=== PATIENT | male | born 1995 | race Caucasian/White ===

== ENCOUNTER 2016-08-31 13:58 | Emergency (ER) | payer OTHER ==
[~2016-08-31] VITALS: Ht 180.3 cm; Wt 79.4 kg
--- NOTE | 2016-08-31 14:24 | ED Headache ---
General Chief Complaint: Head/Cervical Problems Stated Complaint: HEAD INJ, HEADACHE Source: patient Exam Limitations: no limitations History of Present Illness Time seen by provider: 14:23 Initial Comments To ER with reports of a headache. He's had nausea. This began on 08/27/16 after he was going to grab a ball underneath a swing set and the top of his head struck the swing set post. There was no loss of consciousness. No neck pain. Timing/Duration: 1 week Severity/Quality: moderate Location: frontal, parietal Prior Headaches/Recent Trauma: occasional headaches Associated Symptoms: denies symptoms Allergies and Home Medications Allergies Coded Allergies: No Known Drug Allergies (Unverified , 08/31/16) Home Medications Ondansetron 8 Mg Tab.rapdis #10 8 MG PO Q6H PRN PRN NAUSEA/VOMITING Prescribed by: CESAR HAN on 08/31/16 8195 Constitutional: see HPI Eyes: No Symptoms Reported Ears, Nose, Mouth, Throat: no symptoms reported Respiratory: no symptoms reported Cardiovascular: no symptoms reported Genitourinary: no symptoms reported Musculoskeletal: no symptoms reported Skin: no symptoms reported Psychiatric/Neurological: See HPI Headache Past Gfgrsnu-Gvyzph-Ylkwvt Hx Patient Social History Recent Foreign Travel: No Contact w/Someone Who Travel: No Physical Exam Vital Signs Vital Sign - Last 12Hours 08/31/16 14:19 Temp 98.7 Pulse 60 Resp 18 B/P 120/61 Pulse Ox 99 O2 Delivery Room Air Capillary Refill : General Appearance: WD/WN no apparent distress HEENT: PERRL/EOMI normal ENT inspection TMs normal Neck: non-tender full range of motionNo tender lateral, No tender midline Cardiovascular: regular rate, rhythm no murmur Respiratory: no respiratory distress no accessory muscle use Extremities: normal range of motion non-tender Psychiatric: alert oriented x 3 Crainal Nerves: normal hearing normal speech PERRL Skin: normal color warm/dry Progress/Results/Core Measures Results/Orders My Orders Orders-CESAR HAN APRN Ct Head Wo (08/31/16 14:20) Vital Signs/I&O Vital Sign - Last 12Hours 08/31/16 14:19 Temp 98.7 Pulse 60 Resp 18 B/P 120/61 Pulse Ox 99 O2 Delivery Room Air Diagnostic Imaging Diagonstic Imaging: CT Comments NAME: CALICHIP Leong MED REC#: [id number] PT STATUS: REG ER : 1995 PHYSICIAN: CESAR HAN APRN ADMIT DATE: 08/31/16/ER Draft Date of Exam:08/31/16 CT HEAD WO PROCEDURE: CT head without contrast. TECHNIQUE: Multiple contiguous axial images were obtained through the brain without the use of intravenous contrast. INDICATION: Concussion. Headaches. Pressure behind left eye. COMPARISON: None. FINDINGS: No intracranial hemorrhage, mass effect, hydrocephalus or extra-axial fluid collections. No CT evidence of acute infarction. Osseous structures are intact. Mucosal thickening and air-fluid levels throughout the visualized maxillary, ethmoid and frontal sinuses. The visualized mastoid air cells are clear. The orbits are unremarkable. IMPRESSION: 1. No acute intracranial CT findings. 2. Advanced paranasal sinus disease including moderate mucosal thickening and air-fluid levels throughout the visualized maxillary, ethmoid and frontal sinuses. Dictated on workstation # [id number] Dict: 08/31/16 1444 Trans: 08/31/16 1448 [facility] [id number] Interpreted by: DAPHNE HALL MD Electronically signed by: Departure Impression Impression: Primary Impression: Concussion without loss of consciousness Qualified Code: S06.0X0A - Concussion without loss of consciousness, initial encounter Additional Impression: Sinusitis Disposition: 01 HOME, SELF-CARE Condition: Stable Departure-Patient Inst. Decision time for Depature: 14:34 Referrals: NO,LOCAL PHYSICIAN (PCP/Family) Primary Care Physician Patient Instructions: Concussion in Adults Add. Discharge Instructions: 1. Return to ER for any concerns 2. Follow-up with your doctor next week 3. Nausea medication as needed 4. Tylenol and Motrin as needed for headaches All discharge instructions reviewed with patient and/or family. Voiced understanding. Scripts Fluticasone Propionate (Flonase Allergy Relief)9.9 Ml [place].susp9.9 Ml NS DAILY #1 SPRAY Prov:CESAR HAN APRN 08/31/16 Amoxicillin/Potassium Clav (Augmentin 875-125 Tablet)1 Each Tablet1 Each PO BID #14 TAB Prov:CESAR HAN APRN 08/31/16 Ondansetron (Zofran Odt)8 Mg Tab.rapdis8 Mg PO Q6H PRN NAUSEA/VOMITING #10 TAB Prov:CESAR HAN APRN 08/31/16 Work/School Note: Work Release Form Date Seen in the Emergency Department: Aug 31, 2016 Return to Work: Sep 03, 2016 CESAR HAN APRN Aug 31, 2016 14:24
[2016-08-31] MEDS ORDERED: ONDA8TAB9 PO (14:35)
--- NOTE | 2016-08-31 14:49 | Diagnostic Imaging Report ---
PROCEDURE: CT head without contrast. TECHNIQUE: Multiple contiguous axial images were obtained through the brain without the use of intravenous contrast. INDICATION: Concussion. Headaches. Pressure behind left eye. COMPARISON: None. FINDINGS: No intracranial hemorrhage, mass effect, hydrocephalus or extra-axial fluid collections. No CT evidence of acute infarction. Osseous structures are intact. Mucosal thickening and air-fluid levels throughout the visualized maxillary, ethmoid and frontal sinuses. The visualized mastoid air cells are clear. The orbits are unremarkable. IMPRESSION: 1. No acute intracranial CT findings. 2. Advanced paranasal sinus disease including moderate mucosal thickening and air-fluid levels throughout the visualized maxillary, ethmoid and frontal sinuses. Dictated by: Dictated on workstation # [id number]
[2016-08-31] MEDS ORDERED: AMOX-358 PO (14:51)
[2016-08-31] MEDS ORDERED: FLUT9.9S NS (14:51)
[2016-08-31 15:00] VITALS: BP 120/61
[2016-08-31] MEDS ORDERED: ACET/BUTAL/CAFF (FIORICET) TAB PO PRN (15:00)
== END 2016-08-31 15:00 | disposition home or self-care (01) ==
LOC: ER 14:03
DX: S06.0X0A Concussion without loss of consciousness, initial encounter (principal); J01.80 Other acute sinusitis; W21.9XXA Striking against or struck by unspecified sports equipment, initial encounter; Y99.8 Other external cause status
CPT/HCPCS: 70450; 99282

== ENCOUNTER → 2016-12-16 | Outpatient (CLI) | payer OTHER ==
[~2016-12-16] MED LIST: AMOX-358 PO; FLUT9.9S NS; ONDA8TAB9 PO
--- NOTE | 2016-12-16 17:57 | Diagnostic Imaging Report ---
PROCEDURE: CT left lower extremity without contrast. TECHNIQUE: Multiple contiguous axial images were obtained through the left lower extremity without the use of intravenous contrast. Sagittal and coronal reformations were then performed. INDICATION: Previous ACL tear. COMPARISON: None. FINDINGS: Postsurgical changes of previous ACL repair are identified. Metallic anchor is identified within the medial margins of the proximal tibia. Metallic anchor device is also identified associated with the lateral margins of the distal femur. No unexpected radiopaque foreign bodies are seen. The hardware appears appropriately positioned. Please note, integrity of the graft cannot be evaluated on this exam. Other remaining surrounding soft tissue structures are also suboptimally evaluated. Bony structures however are intact. There is no evidence of acute fracture or dislocation of the left knee. No lytic or blastic bony lesions are seen. There is no large joint effusion. IMPRESSION: 1. Postsurgical changes of the left knee as described above. 2. No evidence of acute fracture or dislocation of the left knee. Dictated by: Dictated on workstation # [id number]
== END ==
LOC: RAD 15:30
PROVIDERS: ATTEND Orthopaedic Surgery
DX: M23.92 Unspecified internal derangement of left knee (principal); Z98.890 Other specified postprocedural states
CPT/HCPCS: 73700

== ENCOUNTER 2017-06-17 13:24 | Emergency (ER) | payer OTHER ==
[~2017-06-17] VITALS: Ht 180.3 cm; Wt 79.4 kg
--- NOTE | 2017-06-17 13:48 | ED Abdominal Pain ---
General Chief Complaint: -Male Stated Complaint: TEST FOR CHLAMYDIA Nursing Triage Note: ARRIVED VIA AMB TO ROOM 09. STATES HE HAD UNPROTECTED SEX LAST NIGHT AND THAT PERSON CALLED HIM TODAY SAYING THEY HAD A POSITIVE CHALYMIDIA TODAY. PT HAS NO SX AT THIS TIME. Sepsis Screen: No Definite Risk Source of Information: Patient Exam Limitations: No Limitations History of Present Illness Time Seen By Provider: 13:56 Initial Comments To ER with reports of exposure to chlamydia. Patient states that he had unprotected sex last night and that sexual partner called him today to report that they had tested positive for chlamydia. Patient is asymptomatic. He has never had an STD before and is otherwise healthy. Severity/Quality: Mild Radiation: No Radiation Associated Symptoms: Denies Symptoms Allergies and Home Medications Allergies Coded Allergies: No Known Drug Allergies (Unverified , 08/31/16) Home Medications No Active Prescriptions or Reported Meds Review of Systems Constitutional: see HPI EENTM: No Symptoms Reported Respiratory: No Symptoms Reported Cardiovascular: No Symptoms Reported Gastrointestinal: No Symptoms Reported Genitourinary: No Symptoms Reported Musculoskeletal: no symptoms reported Skin: no symptoms reported Psychiatric/Neurological: No Symptoms Reported Endocrine: No Symptoms Reported Past Iamelks-Adsxmn-Tbqkdj Hx Patient Social History Alcohol Use: Denies Use Recreational Drug Use: No Smoking Status: Never a Smoker 2nd Hand Smoke Exposure: No Recent Foreign Travel: No Contact w/Someone Who Travel: No Recent Infectious Disease Expo: No Recent Hopitalizations: No Immunizations Up To Date Tetanus Booster (TDap): Less than 5yrs PED Vaccines UTD: Yes Seasonal Allergies Seasonal Allergies: No Surgeries History of Surgeries: Yes Surgeries: Orthopedic Respiratory History of Respiratory Disorde: No Cardiovascular History of Cardiac Disorders: No Neurological History of Neurological Disord: No Reproductive System Hx Reproductive Disorders: No Genitourinary History of Genitourinary Disor: No Gastrointestinal History of Gastrointestinal Di: No Musculoskeletal History of Musculoskeletal Dis: No Endocrine History of Endocrine Disorders: No HEENT History of HEENT Disorders: No Cancer History of Cancer: No Psychosocial History of Psychiatric Problem: No Integumentary History of Skin or Integumenta: No Blood Transfusions History of Blood Disorders: No Physical Exam Vital Signs VS - Last 72 Hours, by Label 06/17/17 13:35 Temp 98.0 Pulse 50 Resp 18 B/P (MAP) 123/69 Pulse Ox 98 O2 Delivery Room Air Capillary Refill : Less Than 3 Seconds General Appearance: WD/WN, no apparent distress HEENT: PERRL/EOMI, normal ENT inspection Neck: non-tender, full range of motion Respiratory: no respiratory distress, no accessory muscle use Cardiovascular: regular rate, rhythm, no murmur Gastrointestinal: normal bowel sounds, non tender, soft Genital/Rectal: other (deferred, patient denies testicular tenderness, genital lesions or sores or discharge.) Extremities: normal range of motion, non-tender Neurologic/Psychiatric: alert, normal mood/affect, oriented x 3 Skin: normal color, warm/dry Progress/Results/Core Measures Results/Orders My Orders Orders - CESAR HAN APRN Ua Culture If Indicated (06/17/17 13:45) Chlamydia Dna (06/17/17 13:45) Neis Mynor Dna Urine Test (06/17/17 13:45) Chlamydia Dna (06/17/17 13:55) Vital Signs/I&O Vital Sign - Last 12Hours 06/17/17 13:35 Temp 98.0 Pulse 50 Resp 18 B/P (MAP) 123/69 Pulse Ox 98 O2 Delivery Room Air Blood Pressure Mean: 87 Departure Communication (Admissions) Progress Notes I did discuss with him that since he has no symptoms we could test for Chlamydia which takes about 5 days to get the results back. If this was positive. Follow-up in the treated. Alternatively, if he would rather we could treat today with Rocephin and Zithromax. He would prefer to be treated today. Impression Impression: Primary Impression: Exposure to sexually transmitted disease (STD) Disposition: 01 HOME, SELF-CARE Condition: Stable Departure-Patient Inst. Decision time for Depature: 13:58 Referrals: NO,LOCAL PHYSICIAN (PCP/Family) Primary Care Physician Patient Instructions: Chlamydia (DC), Gonorrhea (DC) Add. Discharge Instructions: 1. Always wear protection with sexual intercourse 2. Return to ER for any concerns 3. All discharge instructions reviewed with patient and/or family. Voiced understanding. Scripts No Active Prescriptions or Reported Meds CESAR HAN APRN Jun 17, 2017 13:48
[2017-06-17] MEDS ORDERED: AZITHROMYCIN 250 MG TAB (ZITHROMAX) PO ONE (13:56)
[2017-06-17] MEDS ORDERED: LIDOCAINE 1% INJ 20 ML (XYLOCAINE) VIAL INJ ONE (14:00)
[2017-06-17] MEDS ORDERED: cefTRIAXone 1 GM (ROCEPHIN) VIAL IM ONE (14:00)
[2017-06-17 14:04] LABS: BILIRUBIN,URINE NEGATIVE (NEGATIVE); KETONES,URINE NEGATIVE (NEGATIVE); LEUKOCYTE ESTERASE ,URINE 1+ (NEGATIVE); NITRITE,URINE NEGATIVE (NEGATIVE); PH,URINE 6 (5-9); PROTEIN,URINE NEGATIVE (NEGATIVE); UROBILINOGEN,URINE NORMAL (NORMAL)
[2017-06-17 14:36] VITALS: BP 126/70
[2017-06-18] MEDS ORDERED: AZITHROMYCIN 250 MG TAB (ZITHROMAX) PO SCH (09:00)
[2017-06-18 15:47] LABS: NEISSERIA GONORRHEA DNA URINE Not Detected (Not Detected)
[2017-06-19 07:03] LABS: CHLAMYDIA DNA URINE Not Detected (Not Detected)
== END 2017-06-17 14:36 | disposition home or self-care (01) ==
LOC: EDUNIT# 13:24 → ER 13:26
DX: Z20.2 Contact with and (suspected) exposure to infections with a predominantly sexual mode of transmission (principal)
CPT/HCPCS: 36415; 81000; 87088; 87491; 87591; 99284